=== PATIENT | male | born 1970 | race Caucasian/White ===

== ENCOUNTER 2021-05-19 23:06 | Observation (INO) ==
[2021-05-20] MEDS ORDERED: GLUCAGON 1 MG VIAL IM PRN (02:45)
[2021-05-20] MEDS ORDERED: MORPHINE 2 MG/1 ML SYRINGE IV PRN (02:45)
[2021-05-20] MEDS ORDERED: ACETAMINOPHEN 325 MG TABLET PO PRN (02:45)
[2021-05-20] MEDS ORDERED: ONDANSETRON 4 MG/2 ML VIAL IV PRN (02:45)
[2021-05-20] MEDS ORDERED: hydrALAZINE 20 MG/1 ML VIAL IV PRN (02:45)
[2021-05-20] MEDS ORDERED: DEXTROSE 50% 25 GM/50 ML SYRINGE IV PRN (02:52)
[2021-05-20 03:11] LABS: Basophils % 0.5 % (0.0-0.8); Eosinophils # 0.1 10*3/uL (0.0-0.87); Eosinophils % 0.8 % (0.00-10.9); Hematocrit 40.5 VOL% (42.0-52.0); Hemoglobin 13.9 GM/DL (14.0-18.0); Immature Granulocytes % 0.3 %; Immature Granulocytes Absolute 0.02 #; Lymphocytes # 0.8 10*3/uL (1.4-4.0); Lymphocytes % 12.4 % (21.2-54.2); Mean Corpuscular HGB Conc 34.3 GM/DL (32-36); Mean Corpuscular Volume 87.7 FL (87-102); Mean Platelet Volume 9.1 FL (9.6-12.0); Monocytes % 8.5 % (1.7-12.7); Neutrophils % 77.5 % (38.7-73.9); Platelet Count 223 T/CUMM (130-400); Red Blood Count 4.62 MC/CUMM (3.8-5.5); Red Cell Distribution Width 12.5 % (9.3-17.3); White Blood Count 6.1 T/CUMM (4-12)
[2021-05-20 03:36] LABS: Bilirubin,Total 0.4 MG/DL (0.20-1.00); Calcium 8.8 MG/DL (8.5-10.1); Osmolality,Calculated 280.4 MOS/KG (273-304); Risk Ratio 4.43; Thyroid Stimulating Hormone 1.02 uIU/ml (0.358-3.74); Total Protein 7.5 G/DL (6.4-8.2); VLDL Cholesterol 30.6 MG/DL
[2021-05-20] MEDS ORDERED: LORazepam 2 MG/1 ML VIAL IV PRN (04:12)
[2021-05-20] MEDS: SODIUM CHLORIDE 0.9% 1,000 ML IV SCH ×2 (07:08→11:59)
[2021-05-20] MEDS ORDERED: DOCUSATE SODIUM 100 MG CAPSULE PO SCH (09:00)
[2021-05-20] MEDS ORDERED: ASPIRIN EC 81 MG TABLET PO SCH (11:00)
[2021-05-20] MEDS ORDERED: METOPROLOL TARTRATE 25 MG TABLET PO SCH (11:00)
[2021-05-20 11:06] VITALS: BP 147/78
== END 2021-05-20 15:06 | disposition home or self-care (01) ==
LOC: N.5E → SUATTDRO 05-20 02:07
PROVIDERS: ADMIT Internal Medicine; ATTEND Internal Medicine